=== PATIENT | male | born 1985 | race Caucasian/White ===

== ENCOUNTER 2017-01-31 04:22 | Emergency (ER) | payer MEDICAID ==
[2017-01-31 04:27] VITALS: BP 150/90; PULSE 95; RESP 20; TEMP 97.9; O2SAT 96
[2017-01-31] MEDS ORDERED: IBUPROFEN 600 MG TAB PO ONE (04:41)
--- NOTE | 2017-01-31 05:45 | EDPHY ---
H & P Stated Complaint: L ankle injury Time Seen by Provider: 01/31/17 05:04 HPI/ROS: HPI The patient presents with L ankle pain which began yesterday after a fall in which he rolled his ankle. He is not exactly sure how it happened. He has had left-sided ankle pain which is getting progressively worse, achy in nature, woke him from sleep, associated with swelling of the joint. He has no prior history of ankle injury. REVIEW OF SYSTEMS Constitutional: No fever, no chills. Eyes: No discharge. ENT: No sore throat. Cardiovascular: No chest pain, no palpitations. Respiratory: No cough, no shortness of breath. Gastrointestinal: No abdominal pain, no vomiting. Genitourinary: No hematuria. Musculoskeletal: No back pain. Skin: No rashes. Neurological: No headache. 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 PHYSICAL General Appearance: Alert, no distress Eyes: Pupils equal and round no pallor or injection ENT, Mouth: Mucous membranes moist Respiratory: Breathing comfortably Neurological: A&O, moves all extremities Skin: Warm and dry, no rashes Musculoskeletal: Left ankle with lateral edema, tender overlying the lateral malleolus, limited range of motion secondary to pain, 2+ DP pulses, sensation intact to light touch Extremities: symmetrical, full range of motion Psychiatric: Patient is oriented X 3, there is no agitation Source: Patient Exam Limitations: No limitations - Personal History Current Tetanus/Diphtheria Vaccine: No Current Tetanus Diphtheria and Acellular Pertussis (TDAP): No Tetanus Vaccine Date: 2006 - Medical/Surgical History Hx Asthma: Yes Hx Chronic Respiratory Disease: No Hx Diabetes: No Hx Cardiac Disease: No Hx Renal Disease: No Hx Cirrhosis: No Hx Alcoholism: No Hx HIV/AIDS: No Hx Splenectomy or Spleen Trauma: No Other PMH: asthma - Social History Smoking Status: Current every day smoker Constitutional: Initial Vital Signs Temperature (C) 36.6 C 01/31/17 04:25 Heart Rate 95 01/31/17 04:25 Respiratory Rate 20 01/31/17 04:25 Blood Pressure 150/90 H 01/31/17 04:25 O2 Sat (%) 96 01/31/17 04:25 O2 Delivery Mode Room Air Allergies/Adverse Reactions: No Known Allergies Allergy (Verified 01/31/17 04:25) Home Medications: Medication Instructions Recorded NK [No Known Home Meds] 02/26/16 Medical Decision Making - Diagnostics Imaging Results: Left ankle three views shows no fracture, no dislocation, interpreted by me, radiology interpretation is pending. Differential Diagnosis: This is a 32-year-old male who presents with an ankle injury yesterday with continued pain and swelling today. Differential diagnosis includes ankle fracture, ankle sprain, ankle dislocation. In the emergency room x-ray was checked and showed no fracture. I feel he has an ankle sprain. He will be discharged with an ankle splint and crutches. I will refer him to Orthopedics. - Data Points Medications Given: Discontinued Medications Ibuprofen (Motrin) 600 mg PO EDNOW ONE Stop: 01/31/17 04:42 Last Admin: 01/31/17 04:50 Dose: 600 mg Departure - Departure Disposition: Home, Routine, Self-Care Condition: Good Instructions: Ankle Sprain (ED), RICE Therapy (ED) Referrals: Musa Larry MD [Medical Doctor] - As per Instructions
== END 2017-01-31 06:03 | disposition home or self-care (01) ==
DX: S93.402A Sprain of unspecified ligament of left ankle, initial encounter (principal); J45.909 Unspecified asthma, uncomplicated; F17.200 Nicotine dependence, unspecified, uncomplicated; W18.39XA Other fall on same level, initial encounter